=== PATIENT | male | born 1990 | race Hispanic/Latino ===

== ENCOUNTER 2018-12-24 11:03 | Inpatient (IN) | payer SELFPAY ==
[2018-12-24] MEDS ORDERED: Ketorolac Tromethamine 30 MG/ML VIAL ONE (11:21)
[2018-12-24] MEDS ORDERED: Fentanyl 100 MCG/2 ML VIAL ONE (11:21)
[2018-12-24] MEDS ORDERED: Cefepime 2 GM VIAL ONE (11:21)
[2018-12-24] MEDS ORDERED: Ondansetron PF 4 MG/2 ML Vial ONE (11:21)
[2018-12-24] MEDS ORDERED: Pantoprazole 40 MG VIAL ONE (11:21)
[2018-12-24 11:46] LABS: Hemoglobin 16.8 g/dL (14.0-18.0); Mean Corpuscular HGB CONC 33.9 g/dL (32.0-36.0); Mean Corpuscular Hemoglobin 30.4 pg (27.0-31.0); Mean Corpuscular Volume 89.7 fL (78.0-98.0); Mean Platelet Volume 8.1 fL (7.4-10.4); Platelet Count 266 thou/uL (130-400); Red Blood Cell (RBC) Count 5.54 mill/uL (4.70-6.10); White Blood Cell (WBC) Count 19.2 thou/uL (4.8-10.8)
[2018-12-24 12:16] LABS: Band 18 % (5-11); Lymphocytes 7 % (21-51); MDiff Complete? YES; Monocytes 6 % (0-10); Neutrophil 65 % (42-75); Platelet Morphology Comment Appears Adequate; Polychromasia SLIGHT = 2-3 cells (100X) (0-2/hpf); Reactive Lymphocytes 4 % (0-10)
[2018-12-24 12:26] LABS: ALT (SGPT) 28 U/L (8-55); AST (SGOT) 18 U/L (5-34); Albumin 4.9 g/dL (3.5-5.0); Alkaline Phosphatase 97 U/L (40-150); Anion Gap 17 mmol/L (10-20); BUN (Urea Nitrogen) 12 mg/dL (8.9-20.6); Bilirubin, Total 0.6 mg/dL (0.2-1.2); Calc. Creatinine Clearance 0 mL/min (70-130); Calcium 9.9 mg/dL (7.8-10.44); Carbon Dioxide 20 mmol/L (22-29); Chloride 100 mmol/L (98-107); Estimated GFR-MDRD 68; Globulin 3.3 g/dL (2.4-3.5); Glucose 104 mg/dL (70-105); Potassium 3.5 mmol/L (3.5-5.1); Protein, Total 8.2 g/dL (6.0-8.3); Sodium 133 mmol/L (136-145)
--- NOTE | 2018-12-24 12:34 | RAD ---
CHEST 1 VIEW: HISTORY: Sepsis alert. COMPARISON: None. FINDINGS: There is hazy opacity of left lung base. No pneumothorax. Right lung is clear. Cardiac silhouette and mediastinal contours are within normal limits. No acute osseous abnormality. IMPRESSION: Hazy opacity left lung base concerning for infection. Followup after treatment recommended. POS: TPC
--- NOTE | 2018-12-24 13:16 | CT ---
CT ABDOMEN AND PELVIS WITH IV CONTRAST: 12/24/18 Multiple axial tomograms obtained through the abdomen and pelvis with IV enhancement. INDICATIONS: Abdominal pain. Nausea, vomiting and diarrhea. FINDINGS: Lung bases clear. Liver, spleen and pancreas unremarkable. Adrenal glands and kidneys unremarkable. Small bowel loops appear normal caliber. Appendix appears normal. Colon unremarkable. IMPRESSION: No acute abnormality identified. POS: OFF
[2018-12-24 15:24] LABS: Bilirubin Negative (Negative); Blood, Urine Negative (Negative); Clarity CLEAR (Clear); Glucose, Urine (Dipstick) Negative (Negative); Leukocyte Negative (Negative); Nitrite Negative (Negative); Protein, Urine (Dipstick) Negative (Neg-Trace); Urobilinogen 0.2 mg/dL (0.2-1.0); pH, Urine 7.5 (5.0-9.0)
[2018-12-24 15:27] LABS: Specific Gravity, Urine 1.047 (1.002-1.036)
[2018-12-24] MEDS ORDERED: Morphine 4 MG/ML VIAL SLOW IVP PRN (16:22)
[2018-12-24] MEDS ORDERED: Sodium Chloride 0.9% 1,000 ML IV SCH (16:30)
[2018-12-24 16:47] LABS: Lactic Acid 1.7 mmol/L (0.5-2.2)
[2018-12-24 17:01] VITALS: BMI 26.3
[2018-12-24] MEDS ORDERED: Promethazine 25 MG TAB PO PRN (17:40)
[2018-12-24] MEDS ORDERED: Promethazine HCl 25 MG/ML VIAL IM/IV PRN (17:40)
[2018-12-24] MEDS: Acetaminophen 325 MG TAB PO PRN (18:06)
[2018-12-24] MEDS ORDERED: Acetaminophen 650 MG Suppository PR PRN (20:07)
[2018-12-24] MEDS: Famotidine 20 MG TAB PO SCH (20:30)
[2018-12-24] MEDS: metroNIDAZOLE 500 MG in Premix Bag 1 BAG IVPB SCH (21:08)
[2018-12-24] MEDS: Sodium Chloride 0.9% 1,000 ML IV SCH (21:14)
[2018-12-24] MEDS ORDERED: Ibuprofen 800 MG TAB PO PRN (22:00)
[2018-12-24] MEDS: Loperamide HCl 2 MG CAP PO PRN (22:08)
--- NOTE | 2018-12-24 23:08 | HP ---
PRIMARY CARE PHYSICIAN: The patient currently does not have a primary care physician. CHIEF COMPLAINT: Abdominal pain. HISTORY OF PRESENT ILLNESS: Mr. Torrey Tolbert is a very pleasant 28-year-old gentleman who has no known past medical history. He says last night he had eaten a hamburger from [employer], and about 2 hours later he started having some sharp pain in his stomach. He then started having vomiting as well as diarrhea off and on. He had multiple episodes of vomiting and diarrhea, i.e., but no hematemesis, no blood in the stools. He did have a high fever according to his girlfriend and the pain was very severe. It was sharp in the epigastric area, and at the worst, he rated it about 10/10. He has also been having some headache off and on and he says that he has been having aches in his knees and in his legs off and on. As a result of him feeling really bad, he came to the emergency room out of the insistence of his girlfriend where he was evaluated. A chest x-ray revealed findings that were suspicious for possible haziness in the left lower lobe and he also had an elevated lactic acid as well as elevated white blood cell count, and for this reason, he is being admitted. REVIEW OF SYSTEMS: CONSTITUTIONAL: He has had subjective fever, but no chills. No night sweats. No weight loss. HEENT: He has had some headache, but no visual changes. He has had some mild sore throat and feeling a bit stopped up. No rhinorrhea. No neck pain. No adenopathy. PULMONARY: He has had cough off and on, but no wheezing. He has had some mild dyspnea on exertion. CARDIOVASCULAR: He denies any chest pain. No shortness of breath. No PND. No orthopnea. GASTROINTESTINAL: Is as in history of present illness. GENITOURINARY: No urinary frequency, hematuria, or hesitancy. NEUROLOGIC: No focal weakness or numbness. No seizures. PSYCHIATRIC: No symptoms of anxiety or depression. SKIN AND INTEGUMENT: No skin changes. No rash. PAST MEDICAL HISTORY: Negative. PAST SURGICAL HISTORY: Also negative. ALLERGIES: NO KNOWN DRUG ALLERGIES. SOCIAL HISTORY: He occasionally drinks once a week socially. Denies any tobacco use. He is single. FAMILY HISTORY: No known history of any medical conditions or heritable diseases. MEDICATIONS: None. PHYSICAL EXAMINATION: GENERAL: He is alert and oriented. He appears to be in no acute distress. He is well developed and well nourished. VITAL SIGNS: Blood pressure was 111/65, heart rate 100, respiratory rate of 18, temperature is 98.8. HEENT: His pupils are equal, round, and reactive to light and accommodation. Extraocular muscles are intact. His sclerae anicteric. Throat; there is no erythema, no exudates. NECK: No adenopathy. No bruits. LUNGS: Clear to auscultation. There is no wheezing, no rales, no rhonchi. CARDIOVASCULAR: He has a normal S1 and S2. There is no S3 or S4. No murmurs or clicks. No rubs. ABDOMEN: Soft. He has some diffuse abdominal pain. There is no rebound, no guarding, no organomegaly. EXTREMITIES: There is no clubbing or cyanosis. No edema. There is no calf tenderness. No joint effusions. NEUROLOGIC: Cranial nerves II through XII are grossly intact. Muscle strength is 5/5 in both his upper and lower extremities. SKIN AND INTEGUMENT: There are no skin changes and no rash. LAB RESULTS: The white blood cell count is 19.2, hemoglobin 16.8, hematocrit is 49.7, and platelet count is 226. Sodium 133, potassium 3.5, chloride is 100, CO2 is 20, BUN of 12, creatinine 1.25, glucose is 104. Lactic acid 2.5. Urinalysis was negative. On his chest x-ray by my reading, there was some haziness in the left lower lobe, but it appears to be more of a shadow than it does to be an actual infiltrate. There are no effusions and heart size is normal. He had a CT scan of the abdomen which was essentially negative. ASSESSMENT: This is a pleasant 28-year-old gentleman who is admitted to the hospital with abdominal pain, nausea, and vomiting. I suspect this is likely the result of gastroenteritis probably and presumed infectious. He will be admitted due to the white count and elevated lactic acid, started on IV empiric antibiotics. We will follow up with the blood culture results and IV fluids for hydration. I suspect that if he is improved by tomorrow and his white blood count is better that he likely can be discharged home, may be on a short course of oral quinolone and Flagyl. Pneumonia. I believe this is unlikely and has essentially been ruled out clinically. Job ID: [id number]
[2018-12-25] MEDS: Sodium Chloride 0.9% 1,000 ML IV SCH ×2 (04:06→14:04)
[2018-12-25 04:44] LABS: #Eosinphils 0.1 thou/uL (0.0-0.7); #Lymphocytes 1.2 thou/uL (1.20-3.40); #Monocytes 0.7 thou/uL (0.11-0.59); #Neutrophils 9.1 thou/uL (1.40-6.50); %Basophils 0.2 % (0.0-1.0); %Eosinophils 0.7 % (0.0-10.0); %Lymphocytes 10.6 % (21.0-51.0); %Monocytes 6.5 % (0.0-10.0); %Neutrophils 82.1 % (42.0-75.0); Mean Corpuscular HGB CONC 32.9 g/dL (32.0-36.0); Mean Corpuscular Hemoglobin 30.5 pg (27.0-31.0); Mean Corpuscular Volume 92.5 fL (78.0-98.0); Mean Platelet Volume 7.8 fL (7.4-10.4); Platelet Count 201 thou/uL (130-400); RBC Distribution Width 12.1 % (11.5-14.5); Red Blood Cell (RBC) Count 4.58 mill/uL (4.70-6.10); White Blood Cell (WBC) Count 11.1 thou/uL (4.8-10.8)
[2018-12-25] MEDS: metroNIDAZOLE 500 MG in Premix Bag 1 BAG IVPB SCH ×3 (05:08→21:13)
[2018-12-25] MEDS ORDERED: Loratadine 10 MG TAB PO PRN (07:30)
[2018-12-25] MEDS ORDERED: Temazepam 15 MG CAP PO PRN (07:30)
[2018-12-25] MEDS ORDERED: Ondansetron PF 4 MG/2 ML Vial IVP PRN (07:30)
[2018-12-25] MEDS ORDERED: Diabetic Tussin 200 MG/10 ML UDCUP PO PRN (07:30)
[2018-12-25] MEDS ORDERED: hydrALAZINE 20 MG/ML VIAL SLOW IVP PRN (07:30)
[2018-12-25] MEDS ORDERED: Sodium Chloride 0.65% Nasal 44 ML BOT EA NARE PRN (07:30)
[2018-12-25] MEDS ORDERED: Artificial Tears 18 DROP/0.9 ML EA EYE PRN (07:30)
[2018-12-25] MEDS ORDERED: Cepastat Lozenges 1 LOZ PO PRN (07:30)
[2018-12-25] MEDS: Famotidine 20 MG TAB PO SCH ×2 (08:44→21:13)
[2018-12-25] MEDS: Enoxaparin Sodium 40 MG/0.4 ML SYRINGE SC SCH (08:45)
[2018-12-25] MEDS: Loperamide HCl 2 MG CAP PO PRN ×3 (08:48→21:13)
--- NOTE | 2018-12-25 10:45 | PDOC.PN ---
- Subjective Encounter Start Date: 12/25/18 Encounter Start Time: 10:20 -: old records requested/rev pt has diarrhoea and abdominal cramps, no vomiting, no fever Patient seen and examined. No new complaints. No overnight events - Objective Resuscitation Status - Order Detail: 12/24/18 17:34 Resuscitation Status Routine Resuscitation Status: FULL: Full Resuscitation MAR Reviewed: Yes Vital Signs & Weight: Vital Signs (12 hours) Temp Pulse Resp BP BP Pulse Ox 12/25/18 08:00 97.6 F 73 16 110/69 96 12/25/18 04:00 97.6 F 59 L 16 107/66 97 12/25/18 00:00 97.5 F L 65 16 117/69 97 Weight Weight 173 lb I&O: 12/24/18 12/25/18 12/26/18 06:59 06:59 06:59 Intake Total 2063 Balance 2063 Result Diagrams: 12/25/18 04:09 12/24/18 11:11 Radiology Reviewed by me: Yes Phys Exam - Physical Examination Constitutional: NAD HEENT: PERRLA, moist MMs, sclera anicteric Neck: no JVD, supple Respiratory: no wheezing, no rales, no rhonchi Cardiovascular: RRR, no significant murmur, no rub Gastrointestinal: soft, non-tender, no distention, positive bowel sounds Musculoskeletal: no edema, pulses present Neurological: non-focal, normal sensation, moves all 4 limbs Lymphatic: no nodes Psychiatric: normal affect, A&O x 3 Skin: no rash, normal turgor, cap refill <2 seconds Dx/Plan (1) Gastroenteritis, infectious, presumed Code(s): K52.9 - NONINFECTIVE GASTROENTERITIS AND COLITIS, UNSPECIFIED Status : Acute (2) Lactic acidosis Code(s): E87.2 - ACIDOSIS Status: Acute (3) Sepsis Code(s): A41.9 - SEPSIS, UNSPECIFIED ORGANISM Status: Acute - Plan cont current plan of care, plan discussed w/ family, continue antibiotics * medication reviewed as below * symptomatic treatment * continue IVF * continue levaquin and flagyl * discussed with family * expecting discharge soon. Review of Systems - Review of Systems ENT: negative: Ear Pain, Ear Discharge, Nose Pain, Nose Discharge, Nose Congestion, Mouth Pain, Mouth Swelling, Throat Pain, Throat Swelling, Other Respiratory: negative: Cough, Dry, Shortness of Breath, Hemoptysis, SOB with Excertion, Pleuritic Pain, Sputum, Wheezing Cardiovascular: negative: chest pain, palpitations, orthopnea, paroxysmal nocturnal dyspnea, edema, light headedness, other Gastrointestinal: Diarrhea. negative: Nausea, Vomiting, Abdominal Pain, Constipation, Melena, Hematochezia, Other Genitourinary: negative: Dysuria, Frequency, Incontinence, Hematuria, Retention , Other Musculoskeletal: negative: Neck Pain, Shoulder Pain, Arm Pain, Back Pain, Hand Pain, Leg Pain, Foot Pain, Other Skin: negative: Rash, Lesions, Ronni, Bruising, Other - Medications/Allergies Allergies/Adverse Reactions: Allergies Allergy/AdvReac Type Severity Reaction Status Date / Time No Known Drug Allergies Allergy Verified 12/24/18 16:21 Medications: Current Medications Acetaminophen (Tylenol) 650 mg PO Q4H PRN PRN Reason: Headache/Fever/Mild Pain (1-3) Last Admin: 12/24/18 18:06 Dose: 650 mg Acetaminophen (Tylenol) 650 mg ME Q4H PRN PRN Reason: Headache/Fever/Mild Pain (1-3) Artificial Tears (Tears Naturale) 2 drop EA EYE PRN PRN PRN Reason: Dry Eyes Enoxaparin Sodium (Lovenox) 40 mg SC 0900 [facility] Last Admin: 12/25/18 08:45 Dose: 40 mg Famotidine (Pepcid) 20 mg PO BID [facility] Last Admin: 12/25/18 08:44 Dose: 20 mg Guaifenesin (Robitussin Sf) 200 mg PO Q4H PRN PRN Reason: Cough Hydralazine HCl (Apresoline) 10 mg SLOW IVP Q4H PRN PRN Reason: SBP > 180 and HR < 70 Levofloxacin 500 mg/ Device 100 mls @ 100 mls/hr IVPB ONCALL-OR MARYANN Metronidazole 500 mg/ Device 100 mls @ 100 mls/hr IVPB Q8HR [facility] Last Admin: 12/25/18 05:08 Dose: 100 mls Sodium Chloride (Normal Saline 0.9%) 1,000 mls @ 100 mls/hr IV .Q10H [facility] Last Admin: 12/25/18 04:06 Dose: 1,000 mls Ibuprofen (Motrin) 800 mg PO Q8HR PRN PRN Reason: Pain Last Admin: 12/24/18 18:45 Dose: 800 mg Loperamide HCl (Imodium) 2 mg PO PRN PRN PRN Reason: Diarrhea/Loose Stools Last Admin: 12/25/18 08:48 Dose: 2 mg Loratadine (Claritin) 10 mg PO DAILYPRN PRN PRN Reason: Sinus Symptoms Ondansetron HCl (Zofran) 4 mg IVP Q6H PRN PRN Reason: Nausea/Vomiting Promethazine HCl (Phenergan) 25 mg PO Q6H PRN PRN Reason: Nausea/Vomiting Promethazine HCl (Phenergan) 25 mg IM/IV Q6H PRN PRN Reason: Nausea/Vomiting Sodium Chloride (Flush - Normal Saline) 10 ml IVF Q12HR PRN PRN Reason: Saline Flush Sodium Chloride (Flush - Normal Saline) 10 ml IVF PRN PRN PRN Reason: Saline Flush Sodium Chloride ([place] Nasal [place] 0.65%) 0 ml EA NARE QIDPRN PRN PRN Reason: Nasal Congestion Temazepam (Restoril) 15 mg PO HSPRN PRN PRN Reason: Insomnia Throat Lozenges (Cepastat Lozenges) 1 connor PO Q2H PRN PRN Reason: Sore Throat
[2018-12-26] MEDS: Sodium Chloride 0.9% 1,000 ML IV SCH ×2 (02:55→03:28)
[2018-12-26 04:40] VITALS: BP 119/78; TEMP 98.1
[2018-12-26] MEDS: Loperamide HCl 2 MG CAP PO PRN (04:57)
[2018-12-26] MEDS: Acetaminophen 325 MG TAB PO PRN (04:59)
[2018-12-26] MEDS: metroNIDAZOLE 500 MG in Premix Bag 1 BAG IVPB SCH (05:00)
[2018-12-26] MEDS: Enoxaparin Sodium 40 MG/0.4 ML SYRINGE SC SCH (08:05)
[2018-12-26] MEDS: Famotidine 20 MG TAB PO SCH (08:05)
--- NOTE | 2018-12-26 14:22 | DIS ---
DATE OF ADMISSION: 12/24/2018 DATE OF DISCHARGE: 12/26/2018 DISCHARGE DISPOSITION: Home. PRIMARY DISCHARGE DIAGNOSES: 1. Gastroenteritis, presumed infectious. 2. Bacteremia due to gram-negative yokasta. 3. Lactic acidosis, improved. 4. Sepsis, resolved. SECONDARY DISCHARGE DIAGNOSIS: None. PRIMARY PROCEDURE/OPERATION: None. RADIOLOGICAL INVESTIGATION: Abdomen and pelvis CT scan was unremarkable. Chest x-ray normal. SIGNIFICANT LABORATORY DATA: WBC 11.1, hemoglobin 14.0, platelet 201. Sodium 133, potassium 3.5, BUN 12, creatinine 1.25. Lactic acid 1.7. LFT normal. Urinalysis normal. Stool for infection workup with C. diff came back negative. Urine culture negative. Influenza screen negative. Blood culture after discharge reported as gram-negative yokasta. DISCHARGE MEDICATIONS: 1. Ciprofloxacin 500 mg p.o. b.i.d. for 15 days. 2. Florastor 250 mg p.o. daily for 15 days. 3. Bentyl 10 mg q.i.d. p.r.n. CONTRAINDICATION: None. CODE STATUS: Full code. INPATIENT HEMODIALYSIS PATIENT CARE SPECIALIST: None. ALLERGIES: NO KNOWN DRUG ALLERGIES. DISCHARGE PLAN: Posthospital, the patient is instructed to follow up with primary care physician in 1 week. HOSPITAL COURSE: A 28-year-old male, who was admitted by Dr. Anderson. Please see her H and P for further details. The patient was having nausea, vomiting, diarrhea. He had mild lactic acidosis on admission. He was also having crampy abdominal pain. In the emergency room, CT abdomen and pelvis was done. Contraindication, none. Code status, full code. Inpatient skin care consultant, none. Allergy, no known drug allergy. Discharge plan, posthospital, the patient will follow up with primary care physician in 1 week. HOSPITAL COURSE: A 28-year-old male, who was admitted by Dr. Anderson. Please see her H and P for further details. The patient was admitted for nausea, vomiting, abdominal pain, and diarrhea. He had presumed gastroenteritis from infectious etiology. His stool for C. diff came back negative. CT abdomen and pelvis was unremarkable. Chest x-ray was unremarkable. His urinalysis was normal. He was treated with Levaquin and Flagyl while in hospital. The patient was subjectively doing great and he was not having any further diarrhea or any symptoms. He was afebrile and he expressed his wish to go home. After going home, we just noted that his blood culture is positive for gram-negative yokasta. We tried to call his listed number and left voicemail as to whether change his prescription to pharmacy, and I spoke with the pharmacy and I increased the duration of ciprofloxacin to 15 days. We will keep checking his culture and sensitivity result. If culture and sensitivity result is not responsive to ciprofloxacin, then we will change appropriate antibiotic therapy, but clinically, he has responded to levofloxacin while in hospital and he does not need any Flagyl so that medication was discontinued. He will have Bentyl p.r.n. basis for abdominal cramps. I have seen and examined the patient at bedside today. PHYSICAL EXAMINATION: VITAL SIGNS: Currently, temperature 98.1, pulse 61, respiratory rate 16, saturation 96% on room air, blood pressure 119/78, weight 173 pounds. GENERAL: The patient is currently alert and awake, in no obvious acute distress. HEAD: Normocephalic and atraumatic. LUNGS: Clear to auscultation without any rhonchi or rales. CARDIAC: S1 and S2. Regular without any murmur. ABDOMEN: Soft and benign. EXTREMITIES: No edema. NEUROLOGIC: Nonfocal examination. Overall, the patient is medically stable for discharge. We will keep checking his blood culture result, and if anything, then we will let the patient's family member or the patient know. Job ID: [id number]
== END 2018-12-26 11:13 | disposition home or self-care (01) | DRG 872 ==
LOC: ERS 11:03 → ERHOLD 14:17 → T4-B 16:19
PROVIDERS: ADMIT Internal Medicine; ATTEND Internal Medicine
DX: A41.50 Gram-negative sepsis, unspecified (principal); E87.2 Acidosis; A09 Infectious gastroenteritis and colitis, unspecified
CPT/HCPCS: 36415; 71045; 74177; 80053; 81003; 83605; 85025; 87040; 87086; 87149; 87324; 87449; 87804; 93005; 94760; C9113; J0692; J1650; J1885; J1956; J2405; J3010